=== PATIENT | male | born 1960 | race Caucasian/White ===

== ENCOUNTER 2019-08-10 16:26 | Emergency (ER) | payer SELFPAY ==
--- NOTE | ~2019-08-10 | XR_ITS ---
XR chest 2V 08/10/2019 16:57 Indication: Shortness of breath with chest pain Procedure: 2 view chest Comparison: 12/12/2016 Findings: Cardiomegaly. Bibasilar infiltrates. Small pleural effusions. Large hiatal hernia. Impression: 1: Bibasilar infiltrates, atelectasis versus pneumonia. 2: Small pleural effusions. 3: Large hiatal hernia. Reviewed, dictated and finalized at location A. Impression: 1: Bibasilar infiltrates, atelectasis versus pneumonia. 2: Small pleural effusions. 3: Large hiatal hernia.
[2019-08-10 16:33] VITALS: BP 192/112; PULSE 82; RESP 18; TEMP 36.6; O2SAT 99
--- NOTE | 2019-08-10 16:40 | ECG_ITS ---
Measurements Intervals [place] Rate: 73 P: 43 [place]: 172 QRS: 21 QRSD: 93 T: 22 QT: 359 QTc: 396 Interpretive Statements SINUS RHYTHM RIGHT BUNDLE BRANCH BLOCK ABNORMAL ECG Electronically Signed On 08-11-2019 7:50:13 CDT by Gagan Mary D.O.
--- NOTE | 2019-08-10 16:41 | ED.SOB ---
HPI - SOB/Dyspnea General Chief Complaint: Shortness of Breath/Dyspnea Stated Complaint: SOB/Rib pain Time Seen by Provider: 08/10/19 16:41 Source: patient and RN notes reviewed History of Present Illness HPI Narrative: Patient is a 59-year-old male that presents the urgent care with complaints of shortness of breath and rib pain. Patient presented to the window appearing to be diaphoretic however he admitted to placing hand mold setter all over his face and arms. Patient denies any chest pain. States that he does have a history of hypertension and COPD and is taking his medications as directed. Patient states that the symptoms started after he was wrestling around when Tuesday with his [id number] and body slammed the [id number]. Patient appears to be intoxicated. No other acute complaints. No acute distress noted. Patient read the plan of care. Related Data Home Medications Medication Instructions Recorded Confirmed amlodipine [Norvasc] 10 mg PO DAILY 08/10/19 08/10/19 beclomethasone dipropionate [Qvar 2 inh INHALATION Q12H 08/10/19 08/10/19 RediHaler] hydrochlorothiazide 25 mg PO DAILY 08/10/19 08/10/19 lisinopril 20 mg PO DAILY 08/10/19 08/10/19 Allergies Allergy/AdvReac Type Severity Reaction Status Date / Time hydrocodone Allergy Unknown Hives / Verified 08/10/19 16:45 Red Face Review of Systems Review of Systems: Narrative: CONSTITUTIONAL: Denies fever, chills, or sweats. EYES: Denies visual changes, redness, or discharge. ENT: Denies rhinorrhea, congestion, sore throat, or otalgia. CARDIOVASCULAR: Denies chest pain, palpitations, or edema. RESPIRATORY: Reports of dyspnea and rib pain GASTROINTESTINAL: Denies abdominal pain, nausea, vomiting, or diarrhea. GENITOURINARY: Denies dysuria or hematuria. SKIN: Denies rash or itching. MUSCULOSKELETAL: Denies back pain, joint pain, or myalgia. NEUROLOGIC: Denies headache, numbness, or weakness. All other systems reviewed are negative, except as documented in HPI. [facility] Social History Social History Gender identity (if verbalized by the patient): Male Comments At the time of my signature, I reviewed and agree with the nursing past medical, surgical, social, and family history. There is no relevant family history pertinent to the patient complaint. Exam Narrative: Exam Narrative: GENERAL: This is a well-nourished, well-developed patient, disheveled HEAD: normocephalic, atraumatic. EYES: PERRL. Sclera clear/white. Vision is grossly intact. EARS: External ears normal, auditory canals clear and without drainage, TMs normal without perforation. Hearing grossly intact. NOSE: External nose normal with no obvious nasal discharge, nares without redness, no rhinorrhea. THROAT: Mucous membranes moist, posterior pharynx clear. Poor dentition throughout NECK: Neck supple, non-tender without lymphadenopathy CARDIOVASCULAR: Regular rate and rhythm without murmurs, gallops, or rubs. RESPIRATORY: Tight wheezes and crackles throughout more notable in the bases SKIN: warm, intact with no suspicious lesions or rash, good texture and turgor. NEURO: awake, alert, and oriented to person, place and time. There were no obvious focal neurologic abnormalities. EXTREMITIES: No clubbing, cyanosis, or edema. Course Vital Signs Vital signs: Vital Signs Temperature 97.8 F 08/10/19 16:33 Pulse Rate 82 08/10/19 16:33 Respiratory Rate 18 08/10/19 16:33 Blood Pressure 192/112 H 08/10/19 16:33 Pulse Oximetry 99 08/10/19 16:33 Temperature 97.8 F 08/10/19 16:33 Pulse Rate 82 08/10/19 16:33 Respiratory Rate 18 08/10/19 16:33 Blood Pressure 183/104 H 08/10/19 17:02 Pulse Oximetry 99 08/10/19 16:33 Reviewed?patient is informed that they may have pre-hypertension or hypertension based on a blood pressure reading in the department. I recommend the patient call the primary care provider listed on their discharge instructions or a physician of their
[2019-08-10 17:02] VITALS: BP 183/104
== END 2019-08-10 17:23 | disposition left against medical advice (07) ==
PROVIDERS: Emergency Provider Nurse Practitioner Family
DX: J18.9 Pneumonia, unspecified organism (principal); I10 Essential (primary) hypertension; J44.9 Chronic obstructive pulmonary disease, unspecified; G62.9 Polyneuropathy, unspecified; I45.10 Unspecified right bundle-branch block
CPT/HCPCS: 71046; 93005; 99213; G0463